=== PATIENT | female | born 1985 | race Caucasian/White ===

== ENCOUNTER 2019-06-08 10:00 | Emergency (ER) | payer MEDICARE, MEDICAID, SELFPAY ==
[2019-06-08 10:04] VITALS: BP 136/90; PULSE 76; RESP 16; TEMP 35.8; O2SAT 98
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
[2019-06-08] MEDS: Normal Saline 1,000 ML 150 ML IV (10:40)
[2019-06-08 10:45] LABS: Abs Immature Grans 0.02 k/cumm (0.0-0.09); Absolute Basophil Count 0.02 k/cumm (0.0-0.2); Absolute Eosinophil Count 0.25 k/cumm (0.0-0.7); Absolute Lymphocyte Count 2.71 k/cumm (1.2-3.4); Absolute Monocyte Count 0.46 k/cumm (0.11-0.7); Absolute Neutrophil Count 3.54 k/cumm (1.2-6.7); Basophils % 0.3; Eosinophils % 3.6; HCT 43.4 % (36.0-46.0); HGB 14.1 g/dL (12.0-15.5); Immature Grans % 0.3 %; Lymphocytes % 38.7; Mean Corp. HGB Concentration 32.5 g/dL (32.0-36.0); Mean Corpuscular Hemoglobin 28.4 pg (27.0-33.0); Mean Corpuscular Volume 87.3 fL (80-95); Monocytes % 6.6; Neutrophils % 50.5; Platelet Count 354 x1000/uL (130-400); RBC 4.97 m/cumm (4.00-5.20); RBC Distribution Width 13.7 % (11.7-14.6)
[2019-06-08 10:59] LABS: Bilirubin Negative (Negative); Blood Large (Negative); Clarity Clear (Clear); Glucose Negative (Negative); Ketones Negative (Negative); Leukocyte Esterase Negative (Negative); Nitrite Negative (Negative); Specific Gravity >= 1.030 (1.005-1.025); Urobilinogen 0.2 EU/dL (Up TO 0.2); pH 6.5 (5-8)
[2019-06-08 11:03] LABS: ALT 19 U/L (14-59); AST 18 U/L (15-37); Albumin 3.5 g/dL (3.4-5.0); Alkaline Phosphatase 87 U/L (46-116); Anion Gap 9.3 mmol/L (3-11); BUN 10 mg/dL (7-18); Bilirubin, Total 0.3 mg/dL (0.2-1.0); CO2 25.7 mmol/L (21.0-32.0); CREATININE 0.88 mg/dL (0.55-1.02); Calcium 8.7 mg/dL (8.5-10.1); Chloride 108 mmol/L (98-107); Glucose 90 mg/dL (74-106); Potassium 3.7 mmol/L (3.5-5.1); Sodium 143 mmol/L (136-145); Total Protein 7.6 g/dL (6.4-8.2)
[2019-06-08 11:05] LABS: Bacteria Few HPF (Negative); C & S Indicated? Yes; Casts Negative LPF (Negative); Crystals Negative HPF (Negative); Epithelial Cells Few HPF (Negative); Mucus Trace (Negative); RBC 20-50 HPF (0-2); WBC 0-2 HPF (0-5)
[2019-06-08] MEDS: Normal Saline Flush 10 ML SYR IVP (16:38)
== END 2019-06-08 13:25 | disposition home or self-care (01) ==
PROVIDERS: Emergency Provider Emergency Medicine; PCP Family Medicine
DX: M54.5 Low back pain (principal); R10.31 Right lower quadrant pain; W50.1XXA Accidental kick by another person, initial encounter
CPT/HCPCS: 36415; 80053; 81025; 96360; 96361; 99284; 81003; 81015; 85025; 87086

== ENCOUNTER 2020-01-02 09:14 | Outpatient (REF) | payer MEDICARE, MEDICAID, SELFPAY ==
--- NOTE | 2020-01-02 08:30 | PAPFT_PTH ---
PATIENT: Karen Palacios LOC: [facility] U#:[id number] AGE/SX: 34/F ROOM: RE01/02/[address]: Marivel Rosado MD, DC : 1985 BED: DIS: 01/02/2020 SPEC #: [id number] RECD: 01/02/20 13:11 STATUS: BIPIN REQ #: [id number] DAQUAN: 01/02/20 08:[address]: Marivel Rosado DEPT: [facility] Cytology RECD BY: Carolee Mcdowell Tissues: 1 - CX/ENDOCX FOR PAP SMEARS Procedures: PAP THIN PREP/UVM Screening HPV DNA PROBE Comments: [id number]
== END 2020-01-02 09:34 ==
LOC: LBN 09:14
PROVIDERS: PCP Family Medicine; Visit Provider Family Medicine
DX: Z12.4 Encounter for screening for malignant neoplasm of cervix (principal); Z11.51 Encounter for screening for human papillomavirus (HPV)
CPT/HCPCS: 88142; 87624

== ENCOUNTER 2021-01-01 12:07 | Outpatient (REF) | payer MEDICARE, MEDICAID, SELFPAY ==
[2021-01-02 16:28] LABS: COVID-19 RT-PCR UVMMC Result Negative (Negative)
== END 2021-01-01 12:08 | disposition home or self-care (01) ==
LOC: LBN 12:07
PROVIDERS: PCP Family Medicine; Visit Provider Physician Assistant
DX: J02.9 Acute pharyngitis, unspecified (principal); Z20.822 Contact with and (suspected) exposure to COVID-19
CPT/HCPCS: U0003; U0005; 87070

== ENCOUNTER 2021-09-04 03:59 | Outpatient (CLI) | payer MEDICARE, MEDICAID, SELFPAY ==
[2021-09-04 13:22] LABS: Hemoglobin A1C 5.6 % (<5.7)
[2021-09-04 14:39] LABS: ALT 24 U/L (14-59); AST 17 U/L (15-37); Albumin 3.3 g/dL (3.4-5.0); Alkaline Phosphatase 92 U/L (46-116); Anion Gap 12.3 mmol/L (3-11); BUN 7 mg/dL (7-18); Bilirubin, Total 0.6 mg/dL (0.2-1.0); CO2 23.7 mmol/L (21.0-32.0); CREATININE 0.8 mg/dL (0.55-1.02); Calcium 8.5 mg/dL (8.5-10.1); Calculated LDL 141 mg/dL (<100); Chloride 104 mmol/L (98-107); Cholesterol 230 mg/dL (<200); Glucose 87 mg/dL (74-106); HDL Cholesterol 58 mg/dL (40-60); Potassium 3.6 mmol/L (3.5-5.1); Sodium 140 mmol/L (136-145); Total Protein 7.1 g/dL (6.4-8.2); Triglyceride 155 mg/dL (<150)
== END 2021-09-04 04:00 | disposition home or self-care (01) ==
LOC: LOS 04:00
PROVIDERS: PCP Family Medicine; Visit Provider Family Medicine
DX: E11.9 Type 2 diabetes mellitus without complications (principal)
CPT/HCPCS: 36415; 80053; 80061; 83036

== ENCOUNTER 2022-02-11 09:54 | Outpatient (REF) | payer MEDICARE, MEDICAID, SELFPAY ==
[2022-02-13 12:31] LABS: COVID-19 RT-PCR UVMMC Result Negative (Negative)
== END 2022-02-11 09:55 | disposition home or self-care (01) ==
LOC: LBN 09:54
PROVIDERS: PCP Family Medicine; Visit Provider Physician Assistant
DX: Z20.822 Contact with and (suspected) exposure to COVID-19 (principal)
CPT/HCPCS: U0003

== ENCOUNTER 2022-11-12 08:17 | Emergency (ER) | payer MEDICARE, SELFPAY ==
[2022-11-12 08:19] VITALS: BP 151/106; PULSE 91; RESP 20; TEMP 36.4; O2SAT 99
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
[2022-11-12] MEDS: Lidocaine 5% Patch 1 PATCH TP (08:57)
[2022-11-12] MEDS: Acetaminophen 500 MG TAB 1000 MG PO (08:57)
== END 2022-11-12 09:03 | disposition home or self-care (01) ==
PROVIDERS: Emergency Provider Emergency Medicine; PCP Family Medicine
DX: M54.50 Low back pain, unspecified (principal); G89.29 Other chronic pain
CPT/HCPCS: 99283; 99284

== ENCOUNTER 2023-03-26 11:04 | Outpatient (REF) | payer MEDICARE, SELFPAY ==
[2023-03-25 22:00] LABS: Source Nasal/Nares
[2023-03-25 22:38] LABS: COVID-19 PCR POSITIVE (Negative)
== END 2023-03-26 11:05 ==
LOC: LBN 11:04
PROVIDERS: PCP Family Medicine; Visit Provider Nurse Practitioner Family
DX: U07.1 COVID-19 (principal)
CPT/HCPCS: 87635

== ENCOUNTER 2023-06-30 13:33 | Outpatient (REF) | payer MEDICARE, SELFPAY ==
--- NOTE | 2023-06-30 13:00 | PAPFT_PTH ---
PATIENT: Karen Palacios LOC: [facility] U#:[id number] AGE/SX: 38/F ROOM: RE06/30/[address]: Marivel Rosado MD, DC : 1985 BED: DIS: 06/30/2023 SPEC #: [id number] RECD: 07/01/23 12:56 STATUS: BIPIN REEleno #: [id number] DAQUAN: 06/30/23 13:[address]: Marivel Rosado DEPT: [facility] Cytology RECD BY: Carolee Mcdowell Tissues: 1 - CX/ENDOCX FOR PAP SMEARS Procedures: PAP THIN PREP/UVM Screening Comments: [id number]
== END 2023-06-30 13:34 | disposition home or self-care (01) ==
LOC: LBN 13:33
PROVIDERS: PCP Family Medicine; Visit Provider Family Medicine
DX: Z12.4 Encounter for screening for malignant neoplasm of cervix (principal); R87.615 Unsatisfactory cytologic smear of cervix
CPT/HCPCS: 88142

== ENCOUNTER 2023-09-28 07:54 | Emergency (ER) | payer MEDICARE, SELFPAY ==
[2023-09-28 07:56] VITALS: BP 167/108; PULSE 83; RESP 16; TEMP 36.6; O2SAT 97
[2023-09-28 08:03] VITALS: BP 167/108; PULSE 83; RESP 16; TEMP 36.6; O2SAT 97
--- NOTE | 2023-09-28 08:10 | W.ED.GENAD ---
Discharge Plan Disposition Patient Disposition: Home Discharge Details Clinical Impression: Conjunctivitis Primary Care Provider: Marivel Rosado ED Provider: Enrique Cooley Home Meds and New Rx's Prescriptions: New polymyxin B sulf-trimethoprim 10,000 unit- 1 mg/mL drops 1 drp ophthalmic (eye) Q3H 7 Days Qty: 10 0RF Rx Instructions: while awake; do not exceed 6 doses in 24 hours Continued ibuprofen 200 mg tablet 400 mg PO Q6H PRN norgestimate-ethinyl estradiol [Ortho Tri-Cyclen (28)] 0.18/0.215/0.25 mg-35 mcg (28) tablet 1 tab PO DAILY Qty: 84 6RF Rx Instructions: please dispense without the sugar/replacement pills. Pt will take continuously for 63 days then break for 1 week escitalopram oxalate 20 mg tablet 20 mg PO DAILY Qty: 90 4RF Discharge Instructions Instructions: Conjunctivitis ([facility]) ED Additional Instructions: Please use antibiotics as prescribed and for the full course of medication. As discussed return immediately to the emergency department for any new or significant worsening of symptoms otherwise follow-up with your primary care provider if not improving. Stand Alone Forms: Work Release Referrals: Marivel Rosado MD, [place] [Primary Care Provider] - (As needed for reassessment) HPI General Mode of arrival: ambulatory. Date/Time Provider Initiated Documentation: 09/28/23 08:01. Limitations to Documentation: no limitations. Information obtained by: patient and RN notes reviewed. History of Present Illness 38 year old F presents to the emergency department with the chief complaint of Red goopy left eye, described as moderate, and is localized to the eyes. Patient started experiencing this hour(s) (10) and it has been constant. No relieving factors improve symptom(s), No exacerbating factors reported . Patient notes no other symptoms.. Patient did receive the following treatments prior to arrival, none Related Data Home Medications Medication Instructions Recorded Confirmed ibuprofen 200 mg tablet 400 mg PO Q6H PRN 12/08/19 09/28/23 norgestimate-ethinyl estradiol 1 tab PO DAILY #84 tabs 12/08/22 09/28/23 0.18 mg/0.215mg/0.25mg-35 mcg(28)tablet (Ortho Tri-Cyclen (28)) escitalopram oxalate 20 mg tablet 20 mg PO DAILY #90 tabs 04/06/23 09/28/23 polymyxin B sulfate 10,000 1 drp ophthalmic (eye) Q3H 7 days 09/28/23 unit-trimethoprim 1 mg/mL eye drops #10 mL Previous Rx's Medication Instructions Recorded norgestimate-ethinyl estradiol 1 tab PO DAILY #84 tabs 12/08/22 0.18 mg/0.215mg/0.25mg-35 mcg(28)tablet (Ortho Tri-Cyclen (28)) escitalopram oxalate 20 mg tablet 20 mg PO DAILY #90 tabs 04/06/23 polymyxin B sulfate 10,000 1 drp ophthalmic (eye) Q3H 7 days 09/28/23 unit-trimethoprim 1 mg/mL eye drops #10 mL Allergies Allergy/AdvReac Type Severity Reaction Status Date / Time No Known Allergies Allergy Verified 09/28/23 07:58 General Stated Complaint: EyeProblem BERNICE: 4 Review of Systems Constitutional Constitutional: Denies chills and Denies fever(s) Eyes Eyes: Reports as per HPI, Denies change in vision, Reports eye discharge, Reports irritation, Denies itchy eyes and Reports eye pain ENT Ears, Nose, Mouth, and Throat: Denies nasal congestion Allergic/Immunologic Allergic/Immunologic: Denies itchy eyes Exam Const General: cooperative, no acute distress and not ill appearing Orientation: alert, awake and oriented x3 HENMT Mouth: moist mucous membranes Eyes Visual Nelsno: normal visual nelson by confrontation Alignment and Position: alignment normal and position normal Periorbital: periorbital findings normal Eyelids: eyelids normal Conjunctivae: conjunctival abnormality left conjunctival injection diffuse Pupils: PERRL EOM: EOM intact bilaterally Resp Effort & Inspection: normal respiratory effort, able to speak in complete sentences and no respiratory distress Skin General skin exam: no rashes or lesions noted Neuro General: patient alert, patient awake, patient oriented x3 and moves all extremities Course Vital Signs Vital signs: Vital Signs Temperature 36.6 C 09/28/23 07:56 Pulse 83 09/28/23 07:56 Respiratory Rate 16 09/28/23 07:56 Blood Pressure 167/108 H 09/28/23 07:56 Pulse Oximetry 97 09/28/23 07:56 Temperature 36.6 C 09/28/23 08:03 Temperature Source Temporal Artery Scan 09/28/23 08:03 Pulse 83 09/28/23 08:03 Respiratory Rate 16 09/28/23 08:03 Respiratory Effort Normal, Non-Labored 09/28/23 07:59 Blood Pressure 167/108 H 09/28/23 08:03 Pulse Oximetry 97 09/28/23 08:03 Medical Decision Making Patient presenting to the emergency department for chief complaint of right eye redness and discharge. 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 Patient denies all other contributing symptoms. Physical exam is consistent with left hide conjunctivitis and some purulent discharge is noted. Ocular exam and other exam findings are noncontributory. Will start patient on antibiotics. Patient does deny trauma or injury. Did discuss with patient changing out make-up brushes and other potential sources for bacterial infection. After discussion of diagnosis and plan of care patient has no further needs, questions, or concerns and states clear understanding to return to the emergency department for any worsening symptoms. This documentation was generated using [employer] dictation system, please disregard any oddities of phrase or misspellings. Quality:SDOH Health Related Social Needs: Health related social needs food insecurity Health related social needs details Lives with parents who help her make decisions, this is appropriate [facility] All Active Problems Conjunctivitis (Acute) COVID-19 (Acute) positive on 11/19/21 COVID (Acute) Annual physical exam (Acute) Migraine variant with headache (Acute) Seasonal allergic rhinitis (Chronic 09/10/17) Depression (Chronic 11/10/17) Increased body mass index (Chronic) Encounter for surveillance of contraceptive pills (Chronic 08/02/15) Disability, developmental (Chronic 12/19/13) Anxiety (Chronic) Medical History Abdominal trauma Lumbar strain Attention deficit hyperactivity disorder History of emotional problems Nausea and vomiting in adult patient (09/10/17) Rash of body (01/01/17) Frequent headaches (11/10/17) Family History Mother Essential hypertension Hyperlipidemia Anxiety Father Diabetes Anxiety Hypertension Hyperlipidemia Brother No problems noted. Maternal Grandfather , 70 Alcohol abuse Depression Hyperlipidemia Paternal Grandfather Brain aneurysm Maternal Grandmother , 79 Heart disease Depression Paternal Grandmother Heart disease Cancer Paternal History Substance abuse Social History Smoking/Tobacco Use Status: Never Second Hand Exposure: Yes Smoking risk assessment performed?: Yes Alcohol Intake: current Alcohol Intake frequency: holidays/special occasions only Alcohol type: hard liquor Drug use: Never Substance use type: does not use Caregiver/Support person: Yes Household members: family and other Details: 3 Housing: house Communication Needs: None Education Level: other Do you need help understanding health information?: Often 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 Pets and animals: Yes Pets and animals: cat(s) Sexually active: No Do you think of yourself as: straight/heterosexual Current gender identity: female What is your relationship status?: never How often do you talk on the phone with friends or family?: once per week How often do you get together with friends or relatives?: twice per week How often do you attend christianity or voodoo services?: 4 or more times per year Do you belong to any clubs or organized social groups?: no Panel score (0-1 are the most socially isolated patients): 2 What type of physical activity do you participate in: walking Duration: 15-30 minutes/day Frequency: 3-4 times per week Makenzie/Baptist: Restorationist Special makenzie needs: No (SCIENTOLOGIST) Seatbelt use: always Helmet use: Yes Helmet use: always Drive intox or ride w/intox buggy driver: No Firearms in home: No In current or past relationships, have you been: other Do you feel safe at home: Yes Do you feel safe in your relationship?: Yes Victim of physical abuse: No Victim of emotional abuse: No Victim of sexual abuse: No Would you like helpful sources: Yes
== END 2023-09-28 08:21 | disposition home or self-care (01) ==
PROVIDERS: Emergency Provider Nurse Practitioner Family; PCP Family Medicine
DX: H10.022 Other mucopurulent conjunctivitis, left eye (principal)
CPT/HCPCS: 99283

== ENCOUNTER 2023-12-17 09:02 | Outpatient (CLI) | payer MEDICARE, SELFPAY ==
[2023-12-17 12:54] LABS: Hemoglobin A1C 5.3 % (<5.7)
[2023-12-17 13:12] LABS: ALT 17 U/L (14-59); AST 15 U/L (15-37); Albumin 3.3 g/dL (3.4-5.0); Alkaline Phosphatase 92 U/L (46-116); BUN 9 mg/dL (7-18); Bilirubin, Total 0.65 mg/dL (0.2-1.0); CREATININE 0.8 mg/dL (0.55-1.02); Calcium 8.9 mg/dL (8.5-10.1); Calculated LDL 147 mg/dL (<100); Chloride 106 mmol/L (98-107); Cholesterol 236 mg/dL (<200); Estimated GFR 95.46 (mL/min/1.73m2); Glucose 85 mg/dL (74-106); HDL Cholesterol 58 mg/dL (40-60); Potassium 3.9 mmol/L (3.5-5.1); Sodium 140 mmol/L (136-145); TSH (W/Ref FT4) 3.13 uIU/mL (0.36-3.74); Total Protein 7.2 g/dL (6.4-8.2); Triglyceride 156 mg/dL (<150)
== END 2023-12-17 09:03 | disposition home or self-care (01) ==
LOC: LOS 09:03
PROVIDERS: PCP Family Medicine; Visit Provider Family Medicine
DX: I10 Essential (primary) hypertension (principal); E03.9 Hypothyroidism, unspecified; E11.9 Type 2 diabetes mellitus without complications
CPT/HCPCS: 36415; 80053; 80061; 83036; 84443

== ENCOUNTER 2024-05-22 08:32 | Emergency (ER) | payer MEDICARE, MEDICAID, SELFPAY ==
--- NOTE | 2024-05-22 08:30 | DI.RAD_ITS ---
Exam(s) XR CHEST 2V PA LATERAL EXAM: XR CHEST 2V PA LATERAL CLINICAL HISTORY: Cough TECHNIQUE: 2D digital imaging was performed of the chest. Two images were obtained. PA and lateral views were obtained. COMPARISON: No exams were available for comparison FINDINGS: MEDIASTINUM: Normal. HEART: Normal. PULMONARY VASCULATURE: Normal. LUNGS: Question of a area of increased opacity in the right upper lobe. This may represent superimpo sed structures resulting in artifact but of faint infiltrate may be considered. The lungs are otherw ise clear. PLEURAL SPACE: No pleural effusion or pneumothorax. BONE:Within normal limits for the patient's age. OTHER FINDINGS:Normal. IMPRESSION: Area of opacity in the right upper lobe versus overlying artifact. Developing pneumonia cannot be ex cluded. If the patient continues to have symptoms concerning for pneumonia, a repeat chest x-ray ruben uld be obtained. DATA REPOSITORY: RADIATION DOSE DELIVERED:
[2024-05-22 08:38] VITALS: BP 157/92; PULSE 86; RESP 15; TEMP 36.9; O2SAT 97
[2024-05-22 08:41] VITALS: BP 157/92; PULSE 86; RESP 15; TEMP 36.9; O2SAT 97
--- NOTE | 2024-05-22 08:49 | ED.GENADUL_ITS ---
Discharge Plan Disposition Patient Disposition: Home Condition: Stable Discharge Details Clinical Impression: Pneumonia Primary Care Provider: Marivel Rosado ED Provider: Radha Araujo Home Meds and New Rx's Prescriptions: New azithromycin 250 mg tablet See Rx Instructions .ROUTE .COMPLEX 6 Days Qty: 6 0RF Rx Instructions: For 250 mg dose pack: take 500 mg today (day 1), then 250 mg for 4 days (days 2-5) prednisone 20 mg tablet 40 mg PO DAILY 5 Days Qty: 10 0RF Rx Instructions: Please take 2 tablets by mouth daily for the next 5 days Continued ibuprofen 200 mg tablet 400 mg PO Q6H PRN escitalopram oxalate 20 mg tablet 20 mg PO DAILY Qty: 90 4RF albuterol sulfate 90 mcg/actuation HFA aerosol inhaler 2 puff inhalation Q6H PRN (Reason: shortness of breath or wheezing) Qty: 8.5 0RF benzonatate 100 mg capsule 100 mg PO TID PRN (Reason: cough) Qty: 30 0RF norgestimate-ethinyl estradiol [Ortho Tri-Cyclen (28)] 0.18/0.215/0.25 mg-35 mcg (28) tablet 1 tab PO DAILY Qty: 84 6RF Rx Instructions: please dispense without the sugar/replacement pills. Pt will take continuously for 63 days then break for 1 week Discharge Instructions Instructions: Atypical Pneumonia (Mycoplasma and Viral) ([facility]), Pneumonia, Adult ED Additional Instructions: Does appear that you have an atypical pneumonia which is early developing the right upper lobe. Please take the azithromycin as prescribed. Take the prednisone 2 tablets daily by mouth for the next 5 days. Please continue to use your albuterol inhaler 1 or 2 puffs every 4-6 hours as needed for wheezing. Please take Tylenol or Ibuprofen with food every 4-6 hours as needed for pain and swelling. Follow up with primary care provider in 3-5 days. Return to ED sooner if any worsening or concerns. Thank you for allowing us to care for you today. Stand Alone Forms: Work Release Referrals: Marivel Rosado MD, [place] [Primary Care Provider] - 5 days Discharge Data Discharge Date/Time-TO BE ENTERED AT DEPARTURE: 05/22/24 10:55 HPI General Mode of arrival: ambulatory . Date/Time Provider Initiated Documentation: 05/22/24 08:44 . Limitations to Documentation: no limitations . Information obtained by: patient, RN notes reviewed and old records reviewed . HPI Narrative: 39-year-old female presents to the ER with a chief complaint of URI type symptoms for the last couple of weeks. She reports she was seen at [facility] and was given an albuterol inhaler. She reports she has been using it, she does have inspiratory and expiratory wheezes scattered bilaterally. She is speaking in full sentences. Denies any ear pain or throat pain. Denies any fever. Does have a past medical history of ADHD, abdominal trauma, headaches. Related Data Home Medications ?Medication ?Instructions ?Recorded ?Confirmed ibuprofen 200 mg tablet 400 mg PO Q6H PRN 12/08/19 05/22/24 norgestimate-ethinyl estradiol 1 tab PO DAILY #84 tabs 02/04/24 05/22/24 0.18 mg/0.215mg/0.25mg-35 mcg(28)tablet (Ortho Tri-Cyclen (28)) albuterol sulfate 90 mcg/actuation 2 puff inhalation Q6H PRN 05/02/24 05/22/24 aerosol inhaler shortness of breath or wheezing #8.5 grams benzonatate 100 mg capsule 100 mg PO TID PRN cough #30 caps 05/02/24 05/22/24 escitalopram oxalate 20 mg tablet 20 mg PO DAILY #90 tabs 05/02/24 05/22/24 azithromycin 250 mg tablet See Rx Instructions PO .COMPLEX 6 05/22/24 days #6 tabs prednisone 20 mg tablet 40 mg (2 x 20 mg) PO DAILY URI 5 05/22/24 days #10 tabs Previous Rx's ?Medication ?Instructions ?Recorded norgestimate-ethinyl estradiol 1 tab PO DAILY #84 tabs 02/04/24 0.18 mg/0.215mg/0.25mg-35 mcg(28)tablet (Ortho Tri-Cyclen (28)) albuterol sulfate 90 mcg/actuation 2 puff inhalation Q6H PRN 05/02/24 aerosol inhaler shortness of breath or wheezing #8.5 grams benzonatate 100 mg capsule 100 mg PO TID PRN cough #30 caps 05/02/24 escitalopram oxalate 20 mg tablet 20 mg PO DAILY #90 tabs 05/02/24 azithromycin 250 mg tablet See Rx Instructions PO .COMPLEX 6 05/22/24 days #6 tabs prednisone 20 mg tablet 40 mg (2 x 20 mg) PO DAILY URI 5 05/22/24 days #10 tabs Allergies Allergy/AdvReac Type Severity Reaction Status Date / Time No Known Allergies Allergy Verified 05/22/24 08:43 General Stated Complaint: RespSymp BERNICE: 4 Review of Systems All systems reviewed & are unremarkable except as noted in HPI and below Respiratory Respiratory: Reports as per HPI, Reports cough and Reports wheezing Allergic/Immunologic Allergic/Immunologic: Reports wheezing Exam Narrative Exam Narrative: Constitutional: Alert and oriented x3. Appears stated age. Normal body habitus. Head: Normocephalic, no trauma. Eyes: Pupils PERRL, Red reflex noted, EOM's intact. Eyelids symmetrical without lesions, discharge, or swelling. ENT: Bilateral TM's WNL, External ear normal to inspection, no mastoid TTP, swelling, or erythema, Nasal turbinates WNL, no nasal discharge. Normal dentition, Posterior pharynx WNL, no exudate. Chest: RRR, Normal S1, S2, distal pulses intact. Resp: Scattered expiratory wheezes bilaterally. Abdomen: Soft, non-distended, Normoactive bowel sounds all 4 quads. Musculoskeletal: Normal gait, Moves all 4 extremities without difficulty. Skin: No suspicious rashes or lesions. Capillary refill less than 2 sec. Neurologic: Cranial nerves II-XII intact. Alert and oriented x 3. Motor: No deficits noted. Sensory: Intact bilaterally all 4 extremities. Hematologic/Lymphatic: No ecchymosis, no lymphadenopathy. Course Vital Signs Vital signs: Vital Signs Temperature 36.9 C 05/22/24 08:38 Pulse 86 05/22/24 08:38 Respiratory Rate 15 05/22/24 08:38 Blood Pressure 157/92 H 05/22/24 08:38 Pulse Oximetry 97 05/22/24 08:38 Temperature 36.9 C 05/22/24 08:41 Temperature Source Oral 05/22/24 08:41 Pulse 86 05/22/24 08:41 Respiratory Rate 15 05/22/24 08:41 Respiratory Effort Normal 05/22/24 08:42 Respiratory Depth Normal 05/22/24 08:42 Blood Pressure 157/92 H 05/22/24 08:41 Blood Pressure Position Sitting 05/22/24 08:41 Pulse Oximetry 97 05/22/24 08:41 Oxygen Delivery Method Room Air 05/22/24 08:41 Oxygen Flow Rate 0 05/22/24 08:41 Pain Level 0 05/22/24 08:41 Medical Decision Making 39-year-old female presents to the ER with a chief complaint of URI type symptoms for the last couple of weeks. She reports she was seen at [facility] and was given an albuterol inhaler. She reports she has been using it, she does have inspiratory and expiratory wheezes scattered bilaterally. She is speaking in full sentences. Denies any ear pain or throat pain. Denies any fever. Does have a past medical history of ADHD, abdominal trauma, headaches. Fluvid swab ordered, chest x-ray, urine a DuoNeb nebulizer and 40 mg of prednisone p.o. X-ray shows a early developing right upper lobe pneumonia. Will give a Z-Ruddy and prednisone at home. Will continue to encourage using the albuterol 1 to 2 puffs every 4-6 hours. This text was generated using [employer] system, please disregard any oddities of phrase or misspellings. Imaging Data Radiologic Study: Imaging: X-Ray Radiologist's impression: CLINICAL HISTORY: Cough TECHNIQUE: 2D digital imaging was performed of the chest. Two images were obtained. PA and lateral views were obtained. COMPARISON: No exams were available for comparison FINDINGS: MEDIASTINUM: Normal. HEART: Normal. PULMONARY VASCULATURE: Normal. LUNGS: Question of a area of increased opacity in the right upper lobe. This may represent superimposed structures resulting in artifact but of faint i nfiltrate may be considered. The lungs are otherwise clear. PLEURAL SPACE: No pleural effusion or pneumothorax. BONE:Within normal limits for the patient's age. OTHER FINDINGS:Normal. IMPRESSION: Area of opacity in the right upper lobe versus overlying artifact. Developing pneumonia cannot be excluded. If the patient continues to have symptoms concerning for pneumonia, a repeat chest x-ray should be obtained. Lab Data Lab results reviewed: Yes I reviewed the patient's lab results. Labs: Laboratory Tests Range/Units 05/22/24 08:51 COVID-19 Source Nasopharynx SARS-CoV-2 (PCR) (Negative) Negative Influenza Type A (PCR) (Negative) Negative Influenza Type B (PCR) (Negative) Negative RSV (PCR) (Negative) Negative Quality:SDOH Health Related Social Needs: Health related social needs details Lives with parents who help her make decisions, this is appropriate [facility] All Active Problems (Updated 05/22/24 @ 10:15 by Radha Araujo NP) Pneumonia (Acute) COVID-19 (Acute) positive on 11/19/21 COVID (Acute) Annual physical exam (Acute) Migraine variant with headache (Chronic) Seasonal allergic rhinitis (Chronic 09/10/17) Depression (Chronic 11/10/17) Increased body mass index (Chronic) Encounter for surveillance of contraceptive pills (Chronic 08/02/15) Disability, developmental (Chronic 12/19/13) Anxiety (Chronic) Medical History Abdominal trauma Lumbar strain Attention deficit hyperactivity disorder History of emotional problems Nausea and vomiting in adult patient (09/10/17) Rash of body (01/01/17) Frequent headaches (11/10/17) Family History Mother Essential hypertension Hyperlipidemia Anxiety Father Diabetes Anxiety Hypertension Hyperlipidemia Brother No problems noted. Maternal Grandfather , 70 Alcohol abuse Depression Hyperlipidemia Paternal Grandfather Brain aneurysm Maternal Grandmother , 79 Heart disease Depression Paternal Grandmother Heart disease Cancer Paternal History Substance abuse Social History Smoking/Tobacco Use Status: Never Second Hand Exposure: Yes Smoking risk assessment performed?: Yes Alcohol Intake: current Alcohol Intake frequency: holidays/special occasions only Alcohol type: hard liquor Drug use: Never Substance use type: does not use Caregiver/Support person: Yes Household members: family and other Details: 3 Housing: house Communication Needs: None Education Level: other Do you need help understanding health information?: Often 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 Pets and animals: Yes Pets and animals: cat(s) Sexually active: No Do you think of yourself as: straight/heterosexual Current gender identity: female What is your relationship status?: never How often do you talk on the phone with friends or family?: once per week How often do you get together with friends or relatives?: twice per week How often do you attend bahai or confucianism services?: 4 or more times per year Do you belong to any clubs or organized social groups?: no Panel score (0-1 are the most socially isolated patients): 2 What type of physical activity do you participate in: walking Duration: 15-30 minutes/day Frequency: 3-4 times per week Makenzie/Jain: Evangelical Special makenzie needs: No (AMISH) Seatbelt use: always Helmet use: Yes Helmet use: always Drive intox or ride w/intox delivery driver/supervisor: No Firearms in home: No In current or past relationships, have you been: other Do you feel safe at home: Yes Do you feel safe in your relationship?: Yes Victim of physical abuse: No Victim of emotional abuse: No Victim of sexual abuse: No Would you like helpful sources: Yes
[2024-05-22] MEDS: predniSONE 20 MG TAB 40 MG PO (09:05)
[2024-05-22] MEDS: Albuterol/Ipratropium 3 ML UPD VIAL UPD (09:05)
[2024-05-22 09:33] LABS: COVID-19 PCR Negative (Negative); Influenza A PCR Negative (Negative); Influenza B PCR Negative (Negative); RSV PCR Negative (Negative)
[2024-05-22 09:45] LABS: Source Nasopharynx
[2024-05-22 10:55] VITALS: BP 157/92; PULSE 86; RESP 15; TEMP 36.9; O2SAT 97
== END 2024-05-22 10:55 | disposition home or self-care (01) ==
PROVIDERS: Emergency Provider Registered Nurse Emergency; PCP Family Medicine
DX: J18.9 Pneumonia, unspecified organism (principal)
CPT/HCPCS: 87637; 94640; 99284; 71046; J7512; J7620

== ENCOUNTER 2024-12-15 15:11 | Outpatient (REF) | payer MEDICARE, MEDICAID, SELFPAY ==
--- NOTE | 2024-12-15 13:40 | PAPFT_PTH ---
PATIENT: Karen Palacios LOC: [facility]#:[id number] AGE/SX: 39/F ROOM: RE12/15/[address]: Marivel Rosado MD, DC : 1985 BED: DIS: 12/15/2024 SPEC #: [id number] RECD: 12/15/24 17:41 STATUS: BIPIN REEleno #: [id number] DAQUAN: 12/15/24 13:[address]: Marivel Rosado DEPT: [facility] Cytology RECD BY: Carolee Mcdowell Tissues: 1 - CX/ENDOCX FOR PAP SMEARS Procedures: PAP THIN PREP/UVM Screening HPV DNA PROBE Comments: [id number] (HPV 16 & 18/45)
== END 2024-12-15 15:12 | disposition home or self-care (01) ==
LOC: NCHCN 15:11
PROVIDERS: PCP Family Medicine; Visit Provider Family Medicine
DX: Z12.4 Encounter for screening for malignant neoplasm of cervix (principal)
CPT/HCPCS: 88142; 87624

== ENCOUNTER 2025-01-04 01:25 | Outpatient (CLI) | payer MEDICARE, MEDICAID, SELFPAY ==
--- NOTE | 2025-01-04 08:29 | DI.MAMMO_ITS ---
Exam(s) MAMMO SCREENING EXAM: MAMMO SCREENING CLINICAL HISTORY: screening,Z12.39. TECHNIQUE: Bilateral full field digital CC and MLO mammographic images were obtained with 3D tomosynthesis and utilizing computer aided detection (CAD). COMPARISON: None. This is a baseline mammogram on a 39-year-old. FINDINGS: There are no CAD designations. There are no spiculated masses nor malignant appearing microcalcification groups. There is no significant architectural distortion nor skin thickening-retraction. IMPRESSION: No radiographic evidence of malignancy. BI-RADS Category 1 - Negative Breast Density - Category B - There are scattered areas of fibroglandular density. Breast density Category C or D implies that the patient has dense breast tissue. Dense breast tissue can make it harder to find cancer on a mammogram. Dense breast tissue is also associated with an increased risk of breast cancer. This information about the result of the mammogram report was provided to the patient to raise their awareness. Use this report when you speak with the patient about their risks for breast cancer, which includes their family history. At that time, you may recommend additional screening tests (Ultrasound or MRI) as these tests may add significant information. A negative radiographic report should not delay biopsy if a dominant or clinically suspicious mass is present. Up to ten percent of cancers are not identified on mammography. A negative report may reinforce clinical impression. Adenosis and dense breasts may obscure an underlying neoplasm. False positive reports average 6 to 10%. Patient will receive a letter notifying them of these results.
== END 2025-01-04 01:45 ==
LOC: DI 01:26
PROVIDERS: PCP Family Medicine; Visit Provider Family Medicine
DX: Z12.31 Encounter for screening mammogram for malignant neoplasm of breast (principal)
CPT/HCPCS: 77063; 77067

== ENCOUNTER 2025-02-08 01:53 | Outpatient (CLI) | payer MEDICARE, MEDICAID, SELFPAY ==
[2025-02-08 09:43] LABS: TSH (W/Ref FT4) 2.80 uIU/mL (0.55-4.78)
[2025-02-08 09:46] LABS: Hemoglobin A1C 5.3 % (<5.7)
[2025-02-08 09:49] LABS: ALT 14 U/L (10-49); AST 17 U/L (<34); Albumin 4.1 g/dL (3.4-5.0); Alkaline Phosphatase 97 U/L (46-116); Anion Gap 7.8 mmol/L (3-11); BUN 9 mg/dL (9-23); Bilirubin, Total 0.80 mg/dL (0.2-1.2); CO2 23.2 mmol/L (20.0-31.0); Calcium 8.8 mg/dL (8.3-10.6); Chloride 109 mmol/L (98-107); Cholesterol 222 mg/dL (<200); Glucose 90 mg/dL (74-106); HDL Cholesterol 52 mg/dL (>40); Potassium 3.8 mmol/L (3.5-5.1); Sodium 140 mmol/L (136-145); Total Protein 7.1 g/dL (5.7-8.2)
== END 2025-02-08 01:54 | disposition home or self-care (01) ==
LOC: LBO 01:53
PROVIDERS: PCP Family Medicine; Visit Provider Family Medicine
DX: R73.09 Other abnormal glucose (principal); F41.9 Anxiety disorder, unspecified; R63.5 Abnormal weight gain; I10 Essential (primary) hypertension
CPT/HCPCS: 36415; 80053; 80061; 83036; 84443